=== PATIENT | female | born 1990 | race Hispanic/Latino ===

== ENCOUNTER 2024-04-09 16:16 | Outpatient (CLI) | payer BC | END 2024-04-09 16:17 | disposition home or self-care (01) | LOC: BICRAD 16:16 | PROVIDERS: ATTEND Nurse Practitioner Family | DX: R05.1 Acute cough (principal); J01.90 Acute sinusitis, unspecified; B34.9 Viral infection, unspecified; D72.829 Elevated white blood cell count, unspecified | CPT/HCPCS: 71046 ==